=== PATIENT | male | born 1980 | race Caucasian/White ===

== ENCOUNTER 2019-07-16 17:37 | Emergency (ER) | payer OTHER ==
[~2019-07-16] VITALS: Ht 170.2 cm; Wt 61.2 kg
[~2019-07-16 17:37] MED LIST: AUGMENTIN 875875 MG PO; IBUPROFEN 800800 M1 PO; NOHOMEMEDICATIONS; NORCO 5-325 TA1 EACH PO
[2019-07-16] MEDS ORDERED: NOHOMEMEDICATIONS (17:46)
[2019-07-16] MEDS ORDERED: AUGMENTIN 500-1 EACH PO (17:59)
[2019-07-16 18:51] VITALS: BP 123/87
== END 2019-07-16 18:52 | disposition home or self-care (01) ==
LOC: M.ERS 17:37
DX: S71.112A Laceration without foreign body, left thigh, initial encounter (principal); R20.2 Paresthesia of skin; F17.210 Nicotine dependence, cigarettes, uncomplicated; W54.0XXA Bitten by dog, initial encounter; Y93.89 Activity, other specified; Y92.89 Other specified places as the place of occurrence of the external cause; Y99.8 Other external cause status

== ENCOUNTER 2020-07-01 12:16 | Emergency (ER) | payer OTHER ==
[~2020-07-01] VITALS: Ht 172.7 cm; Wt 65.8 kg
[~2020-07-01 12:16] MED LIST changes: +AUGMENTIN 500-1 EACH PO
[2020-07-01] MEDS ORDERED: NAPROSYN500 MG PO (13:00)
[2020-07-01] MEDS ORDERED: AUGMENTIN 875-1 EACH PO (13:00)
[2020-07-01] MEDS ORDERED: NORCO 5-325 TA1 EAC2 PO (13:35)
[2020-07-01 13:41] VITALS: BP 136/78
== END 2020-07-01 13:42 | disposition home or self-care (01) ==
LOC: M.ERS 12:16
DX: S61.210A Laceration without foreign body of right index finger without damage to nail, initial encounter (principal); W54.0XXA Bitten by dog, initial encounter; Y93.89 Activity, other specified; Y92.89 Other specified places as the place of occurrence of the external cause; Y99.9 Unspecified external cause status

== ENCOUNTER 2020-07-08 17:04 | Emergency (ER) | payer OTHER ==
[~2020-07-08] VITALS: Ht 172.7 cm; Wt 61.2 kg
[~2020-07-08 17:04] MED LIST changes: +AUGMENTIN 875-1 EACH PO; +NAPROSYN500 MG PO; +NORCO 5-325 TA1 EAC2 PO
[2020-07-08 17:35] VITALS: BP 135/88
== END 2020-07-08 17:39 | disposition home or self-care (01) ==
LOC: M.ERS 17:04
DX: S61.210D Laceration without foreign body of right index finger without damage to nail, subsequent encounter (principal); X58.XXXD Exposure to other specified factors, subsequent encounter